=== PATIENT | male | born 1955 | race Caucasian/White ===

== ENCOUNTER 2024-11-29 08:37 | Outpatient (CLI) | payer MEDICARE, MEDICAID ==
--- NOTE | 2024-11-29 11:43 | RADIOLOGY REPORT ---
CLINICAL INDICATION: SWELLING L INDEX FINGER TECHNIQUE: Noncontrast CT of the left hand was performed. Sagittal and coronal reformatted images are provided. COMPARISON: None CT Dose: CTDI volume is 14.4 mGy. Dose-length product is 326.8 mGy*cm FINDINGS: No fracture or dislocation. Narrowing of the 2nd and 3rd metacarpophalangeal joints. Joint space narrowing in the 2nd proximal interphalangeal joint. Soft tissue swelling about the 2nd PIP j oint. Arterial calcifications noted. IMPRESSION: 1. Degenerative changes and soft tissue swelling about the index finger most pronounced in the 2nd pr oximal interphalangeal joint. All CT scans at this medical facility are performed using dose modulation techniques as appropriate t o a performed exam including the following: Automated exposure control was utilized; adjustment of th e MA and/or KV according to patient size; and use of iterative reconstruction technique.
== END 2024-11-29 23:59 | disposition home or self-care (01) ==
LOC: RAD 08:37
PROVIDERS: ATTEND Family Medicine
DX: M19.042 Primary osteoarthritis, left hand (principal); M79.89 Other specified soft tissue disorders; M25.842 Other specified joint disorders, left hand; I70.298 Other atherosclerosis of native arteries of extremities, other extremity
CPT/HCPCS: 73200